=== PATIENT | male | born 1970 | race Caucasian/White ===

== ENCOUNTER 2016-10-12 21:49 | Emergency (ER) | payer BC ==
[~2016-10-12] VITALS: Ht 170.2 cm; Wt 106.5 kg
[2016-10-12 22:36] VITALS: Ht 170.2 cm; Wt 106.5 kg
[2016-10-12] MEDS ORDERED: IBUPROFEN 600 MG TAB PO ONE (23:00)
--- NOTE | 2016-10-12 23:13 | ERD ---
ER Documentation Chief Complaint Date/Time DATE: 10/12/16 TIME: 23:08 Chief Complaint TRIPPED AND FELL. RIGHT WRIST PAIN, SWELLING HPI 46 year-old male presents here in emergency department complains right wrist pain after falling on it today. Patient described the pain as throbbing pain, 6/ 10 scale, is worse upon movement, denies any swelling. Patient some Tylenol for pain with mild relief. Patient denies any numbness or tingling. Patient denies any deformity. Patient denies any elbow pain, patient denies any limitation movement joints of the hands, able to do full range of motion of the right wrist without any restriction. ROS All systems reviewed and are negative except as per history of present illness. Medications Home Meds Reported Medications [none] Unknown Strength No Conflict Check 10/12/16 Allergies Allergies: Coded Allergies: No Known Allergy (Unverified , 10/12/16) PMhx/Soc Medical and Surgical Hx: pt denies Medical Hx, pt denies Surgical Hx Hx Alcohol Use: Yes (occasional) Hx Substance Use: No Hx Tobacco Use: No FmHx Family History: No coronary disease, No diabetes, No other Physical Exam Vitals Vital Signs Date Time Temp Pulse Resp B/P Pulse Ox O2 Delivery O2 Flow Rate FiO2 10/12/16 22:36 97.7 90 16 130/83 98 Physical Exam GENERAL: The patient is well developed and appropriate for usual state of health, in no apparent distress. CHEST: Clear to auscultation bilaterally. There are no rales, wheezes or rhonchi. HEART: Regular rate and rhythm. No murmurs, clicks, rubs or gallops. No S3 or S4. ABDOMEN: Soft, nontender and nondistended. Good bowel sounds. No rebound or guarding. No gross peritonitis. No gross organomegaly or masses. No Arreola sign or McBurney point tenderness. BACK: No midline or flank tenderness. EXTREMITIES: Tenderness on palpation on the ulnar aspect of the right wrist. Equal pulses bilaterally. Full range of motion of other joints of the body. Grossly neurovascularly intact. NEURO: Alert and oriented. Cranial nerves 2-12 intact. Motor strength in all 4 extremities with 5/5 strength. Sensation grossly intact. Normal speech and gait. SKIN: There is no apparent rash or petechia. The skin is warm and dry. HEMATOLOGIC AND LYMPHATIC: There is no evidence of excessive bruising or lymphedema. No gross cervical, axillary, or inguinal lymphadenopathy. Results 24 hrs Current Medications Medications (Trade) Dose Ordered Sig/Mylene Route PRN Reason Start Time Stop Time Status Last Admin Dose Admin Ibuprofen (Motrin) 600 mg ONCE ONCE PO 10/12/16 23:00 10/12/16 23:01 DC 10/12/16 23:50 Patient was given medication for pain here in emergency department, after treatment, patient verbalized feeling much better. Patient's pain is improved. PROCEDURE: XR Wrist. CLINICAL INDICATION: Pain. TECHNIQUE: Three views of the right wrist. COMPARISON: None available. FINDINGS: A 3 mm calcification projects dorsal to the carpus on the lateral view. The joint spaces are preserved. There is no significant soft tissue swelling. IMPRESSION: 1. 3 mm calcification projecting dorsal to the carpus on the lateral view, possibly a triquetral fracture. RPTAT: HTAR .William Espitia MD, MD Date Time Electronically viewed and signed by .William Espitia MD, MD on 10/13/2016 00:19 .R/ CC: DULCE WOLFE [employer] After receiving patients xray report, a posterior short arm wrist splint was applied on the patients right arm. After application of the splint, patient has intact sensation and circulation on distal area of the affected joint. Patient does not complain of numbness or tingling after application of the splint. Patient tolerated procedure well. A sling was given to use afterwards Procedures/MDM Medical Decision Making: Patient's pain is most likely consistent with a triquetral fracture is seen the x-ray. There is no suspicion for neurovascular compromise. Patient has intact sensation and circulation of the affected extremity. There is low suspicion for septic arthritis. Patient does not have any fever. Radiology exams of the affected area does not show any dislocation. no Snuffbox tenderness, low suspicion for scaphoid fracture. Disposition: Home. Patient is given prescription for ibuprofen for pain, [place] for severe pain. Patient was advised to elevate the affected area and apply ice on affected area. Patient was advised that if symptoms are worse, numbness, tingling, high fever, unable to move joint, worsening symptoms, to return to emergency department immediately. Otherwise, patient is advised to follow up with the primary care doctor in 5-7 days for reevaluation of symptoms. See hand cyber security specialist for reevaluation of symptoms and possible treatment. Keep splint in place. Departure Diagnosis: Primary Impression: Triquetral chip fracture Encounter type: initial encounter Fracture type: closed Laterality: right Qualified Code: S62.111A - Triquetral chip fracture, right, closed, initial encounter Condition: Stable Patient Instructions: Fracture, Wrist [General] Additional Instructions: Patient is given prescription for ibuprofen for pain, [place] for severe pain. Patient was advised to elevate the affected area and apply ice on affected area. Patient was advised that if symptoms are worse, numbness, tingling, high fever, unable to move joint, worsening symptoms, to return to emergency department immediately. Otherwise, patient is advised to follow up with the primary care doctor in 5-7 days for reevaluation of symptoms. See hand cyber security specialist for reevaluation of symptoms and possible treatment. Keep splint in place. DULCE WOLFE NP Oct 12, 2016 23:13
--- NOTE | 2016-10-13 00:20 | RADRPT ---
PROCEDURE: XR Wrist. CLINICAL INDICATION: Pain. TECHNIQUE: Three views of the right wrist. COMPARISON: None available. FINDINGS: A 3 mm calcification projects dorsal to the carpus on the lateral view. The joint spaces are preser lobito. There is no significant soft tissue swelling. IMPRESSION: 1. 3 mm calcification projecting dorsal to the carpus on the lateral view, possibly a triquetral fr acture. RPTAT: HTAR .William Espitia MD, MD Date Time Electronically viewed and signed by .William Espitia MD, on 10/13/2016 00:19 .R/
[2016-10-13] MEDS ORDERED: IBUP-1542 PO (00:47)
[2016-10-13] MEDS ORDERED: HYDR-906 PO (00:47)
[2016-10-13 01:21] VITALS: BP 132/87; PULSE 74; RESP 16
== END 2016-10-13 01:22 | disposition home or self-care (01) ==
LOC: FTE 21:49
DX: S62.111A Displaced fracture of triquetrum [cuneiform] bone, right wrist, initial encounter for closed fracture (principal); W01.0XXA Fall on same level from slipping, tripping and stumbling without subsequent striking against object, initial encounter; Y92.9 Unspecified place or not applicable